=== PATIENT | male | born 1950 | race Caucasian/White ===

== ENCOUNTER 2025-03-16 09:59 | Emergency (ER) | payer OTHER ==
[~2025-03-16] VITALS: Ht 188 cm; Wt 99.8 kg
[~2025-03-16 09:59] MED LIST: ACET-2041 PO; AEC81 PO; AMLO-257 PO; ATRO5DRO OP; BRIM5DRO21 OP; DORZ10DR9 OD; FINA5TAB41 PO; LISI40TA15 PO; NASONEX NS; NEOM15CR TP; NETA2.5D3 OP; OMEP20CA12 PO; OXYC-38 PO; PRED5DRO25 OP; TAMS-55 PO; TIMO5SOL10 OP
--- NOTE | 2025-03-16 10:23 | ERN ---
General Chief Complaint: Weakness Stated Complaint: WEAKNESS Time Seen by MD: 10:02 Source: patient History of Present Illness Initial Comments Patient is a 74-year-old male coming in complaining of generalized body weakness. Patient states that this weakness has a attributed to lack of appetite. He states that he has been presenting with a his symptoms after having a surgery performed in his right knee. He states that he has been taking pain meds and feels constipated. Allergies: Coded Allergies: No Known Drug Allergies (Unverified Allergy, Unknown, 02/09/25) Home Meds Active Scripts Aspirin (ASPIRIN 81 MG ECTAB) 81 Mg Ectab, 81 MG PO BID for dvt prophylaxis for 21 Days, #42 TAB.EC 0 Refills Prov:ROHITH HANLEY MD 02/16/25 Oxycodone HCl/Acetaminophen (Percocet 5-325 mg Tablet) 5 Mg-325 Mg Tablet, 1-2 TAB PO Q8H PRN for acute post-op pain (G89.18) for 7 Days, #42 TAB 0 Refills Prov:ROHITH HANLEY MD 02/16/25 Reported Medications Dorzolamide HCl (Dorzolamide HCl) 2 % Drops, 10 ML OD BID, DROP 02/09/25 Omeprazole (Omeprazole) 20 Mg Capsule.dr, 20 MG PO PM, CAP 02/09/25 Amlodipine Besylate (Amlodipine Besylate) 5 Mg Tablet, 5 MG PO PM, TAB 02/09/25 Lisinopril (Lisinopril) 40 Mg Tablet, 40 MG PO PM, TAB 02/09/25 Tamsulosin HCl (Flomax) 0.4 Mg Cap.er.24h, 0.4 MG PO PM, CAPSULE.DR 02/09/25 Finasteride (Finasteride) 5 Mg Tablet, 5 MG PO PM, TAB 02/09/25 Prednisolone Acetate/Pf (Prednisolone Acet 1% Eye Drop) 1 % Drops.susp, 5 ML OP BID, DROP 02/09/25 Netarsudil Mesylat/Latanoprost (Rocklatan 0.02%-0.005% Eye Drp) 0.02 %-0.005 % Drops, 2.5 ML OP PM, DROP 02/09/25 Timolol Maleate (Timolol Maleate) 0.5 % Giselle.gel, 5 ML OP BID 02/09/25 Brimonidine Tartrate/Timolol (Brimonidine-Timolol 0.2%-0.5%) 0.2 %-0.5 % Drops, 5 ML OP BID, DROP 02/09/25 Neomy Sulf/Polymyx B Sulf/Pram (Neosporin Plus Pain Relief Crm) 0.35 %-10,000 Unit-10 Mg/Gram Cream..g., 1 GM TP BID 02/09/25 Atropine Sulfate (Atropine Sulfate) 0.01 % Drops, 5 ML OP BID, DROP 02/09/25 Acetaminophen/Diphenhydramine (Acetaminophen Pm Caplet) 500 Mg-25 Mg Tablet, 5 EACH PO HS, TAB 02/09/25 [Nasonex] No Conflict Check, 2 SPRAYS NS DAILY PRN for NASAL CONGESTION 02/09/25 Past Medical History Past Medical History: CVA, GERD, High Cholesterol, Hypertension Medical History Other: BPH Past Surgical History: Other Surgical History Other: RETINA SX, HERNIA SX, RT KNEE SURGERY. ROS Dictation CONSTITUTIONAL: No chills, no fever, no weakness, no diaphoresis, no malaise. HEAD/FACE: No signs of trauma. EENT: No eye pain, no blurred vision, no tearing, no double vision, no ear pain, no ear discharge, no nose pain, no nasal congestion, no throat pain, no throat swelling, no mouth pain. RESPIRATORY: No cough, no orthopnea, no SOB, no stridor, no wheezing. CARDIOVASCULAR: No chest pain, no edema, no palpitations, no syncope. GASTROINTESTINAL/ABDOMINAL: No abdominal pain, no constipation, no diarrhea, no nausea, no vomiting. GENITOURINARY: No abnormal discharge, no dysuria, no frequent urination, no hematuria. No complaints of pain in the genitals. MUSCULOSKELETAL: No back pain, no gout, no joint pain, no joint swelling, no muscle pain, no muscle stiffness, no neck pain. INTEGUMENTARY: No change in color, no change in hair/nails, no dryness, no lesion, no lumps, no rash. NEUROLOGICAL/PSYCH: No anxiety, not depressed, no emotional problem, no headache, no numbness, no pre-existing deficit, no history of seizures, no tremors, no weakness. HEMATOLOGIC/LYMPHATIC: Not anemic, no history of blood clots, no apparent bleeding, no bruising, glands not swollen. All Systems Negative, Except as Noted. Physical Exam Physical Exam Dictation VITAL SIGNS: Reviewed. GENERAL APPEARANCE: Alert, oriented x3, no acute distress, obese. HEAD AND FACE: Non-traumatic. EYES: PERRL, pink conjunctivas, eyelid no trauma, anterior chamber clear. EARS: Pinnas intact and no signs of trauma or erythema. Ear canals clear and no discharge. TMs no erythema. NOSE: No discharge, no bleeding. OROPHARYNX: Mouth normal, teeth no caries, tongue pink. Pharynx clear, no e rythema. Tonsils no exudates, no abscesses noted. Mucous membrane moist. NECK: Supple, non-tender, no thyromegaly, no masses, no JVD, no bruits. BREAST: Deferred. CHEST: No tenderness, no crepitus, no paradoxical movement, no retractions. LUNGS: Clear, well-ventilated, symmetric, no rales, no wheezing, no rhonchi, no stridor, good breath sounds bilaterally. HEART: Regular rate, regular rhythm, no murmur, no gallops. VASCULAR: No peripheral edema. ABDOMEN: Soft, positive bowel sounds, nondistended, no guarding, nontender, no rebound, no masses no hepatomegaly, no splenomegaly, no Handy's sign, no hernias. RECTAL: Deferred. GENITAL: Deferred. NEUROLOGICAL: Normal speech, gross motor function intact, gross sensory function intact. MUSCULOSKELETAL: Neck nontender, full range of motion, back nontender, full range of motion. EXTREMITIES: Nontender, full range of motion. SKIN: Color pink, dry, no turgor, no rash, no lacerations, no abrasions, no contusions. LYMPHATICS: Deferred. Results Laboratory and Microbiology Lab and Micro Result Laboratory Tests Test 03/16/25 10:28 03/16/25 10:30 White Blood Count 8.4 K/uL (4.8-10.8) Red Blood Count 4.02 MIL/uL (4.50-6.20) L Hemoglobin 12.2 g/dL (14.0-18.0) L Hematocrit 37.3 % (42-54) L Mean Corpuscular Volume 92.8 fL (79-99) Mean Corpuscular Hemoglobin 30.3 pg (27.0-33.0) Mean Corpuscular Hemoglobin Concent 32.7 g/dL (32.0-36.0) Red Cell Distribution Width 13.0 % (11.0-15.5) Platelet Count 369 K/uL (130-400) Mean Platelet Volume 9.8 fL (7.5-10.5) Immature Granulocyte % (Auto) 0.5 % (0-1) Neutrophils (%) (Auto) 74.2 % (40.0-77.0) Lymphocytes (%) (Auto) 10.8 % (21.0-51.0) L Monocytes (%) (Auto) 11.5 % (3.0-13.0) Eosinophils (%) (Auto) 2.5 % (0.0-8.0) Basophils (%) (Auto) 0.5 % (0.0-5.0) Neutrophils # (Auto) 6.2 K/uL (1.8-7.7) Lymphocytes # (Auto) 0.9 K/uL (1.0-4.8) L Monocytes # (Auto) 1.0 K/uL (0.1-1.0) Eosinophils # (Auto) 0.21 K/uL (0.00-0.70) Basophils # (Auto) 0.04 K/uL (0.00-0.20) Absolute Immature Granulocyte (auto 0.04 K/uL (0-1) Nucleated Red Blood Cells 0.0 % (0.0-0.19) Sodium Level 136 mmol/L (136-145) Potassium Level 4.7 mmol/L (3.5-5.1) Chloride Level 98 mmol/L (101-111) L Carbon Dioxide Level 27 mmol/L (21-32) Blood Urea Nitrogen 22 mg/dL (7-18) H Creatinine 1.6 mg/dL (0.5-1.3) H Glomerular Filtration Rate Calc 44 mL/min (>90) Random Glucose 113 mg/dL (70-105) H Total Calcium 9.4 mg/dL (8.5-10.1) Total Bilirubin 0.6 mg/dL (0.2-1.0) Aspartate Amino Transf (AST/SGOT) 18 U/L (10-37) Alanine Aminotransferase (ALT/SGPT) 15 U/L (12-78) Alkaline Phosphatase 96 U/L (50-136) Total Protein 8.3 g/dL (6.0-8.3) Albumin 3.8 g/dL (3.5-5.0) Urine Color YELLOW (YELLOW) Urine Appearance CLEAR (CLEAR) Urine pH 6.0 (5.0-8.0) Urine Specific [place] 1.016 (1.001-1.031) Urine Protein 10 mg/dL (NEGATIVE) H Urine Glucose (UA) NEGATIVE mg/dL (NEGATIVE) Urine Ketones 5 mg/dL (NEGATIVE) H Urine Occult Blood +- (TRACE) (NEGATIVE) H Urine Nitrate NEGATIVE (NEGATIVE) Urine Bilirubin NEGATIVE mg/dL (NEGATIVE) Urine Urobilinogen 0.2 mg/dL (0.2-1.0) Urine Leukocyte Esterase NEGATIVE [place]/uL Urine RBC 2-5 /HPF (0-1) H Urine WBC 0-1 /HPF (0-1) Urine Squamous Epithelial Cells RARE /HPF (0-2) Urine Bacteria None /HPF (None Seen) Labs Reviewed?: Yes MDM MDM: Differential diagnosis:CONSTIPATION, MEDICATION SIDE EFFECT Rationale: Tests considered and ordered secondary to shared decision making include: Previous outside records reviewed: Old ER visits. Risk of complication and/or morbidity or mortality of patient management: None Medications-Per medication reconciliation Need for hospitalization: Patient does not meet criteria for hospitalization. Need for emergency major/minor surgery: No PATIENT IS A 74-YEAR-OLD GENTLEMAN COMING IN COMPLAINING OF ABDOMINAL DISCOMFORT. PATIENT STATES THAT HE HAS BEEN TAKING PAIN MEDICATION AND BELIEVES THAT HE HAS NOT BEEN ABLE TO GO BECAUSE OF THAT. PATIENT WAS GIVEN SOME LAXATIVES AND ENEMA HE WAS ABLE TO DEFECATE A LOT. PATIENT WILL BE DISCHARGED IN STABLE CONDITION. ED Course Orders Procedure Category Date Status Time Cbc With Differential LAB 03/16/25 Complete 10:06 Comprehensive LAB 03/16/25 Complete Metabolic Panel 10:06 Urinalysis Profile LAB 03/16/25 Complete 10:06 Magnesium Citrate PHA 03/16/25 Complete (Magnesium Citrate) 11:30 0.9%Nacl 1000ml (Ns PHA 03/16/25 Complete 1000ml) 11:30 Lactulose 20 Gm/30 Ml PHA 03/16/25 Complete Udcup (Constulose 11:30 Ondansetron 4mg Inj PHA 03/16/25 Complete (Zofran 4mg Inj) 12:00 Fleet Order CPOE 03/16/25 Transmitted 13:29 Current Medications Medications (Trade) Dose Ordered Sig/Tammi Route PRN Reason Start Time Stop Time Status Last Admin Dose Admin Lactulose (Constulose 20gm/ 30ml Udcup) 20 gm ONCE ONCE PO 03/16/25 11:30 03/16/25 11:31 DC 03/16/25 11:50 Magnesium Citrate (Magnesium Citrate) 296 ml ONCE ONCE PO 03/16/25 11:30 03/16/25 11:31 DC 03/16/25 11:50 Ondansetron HCl (zoFRAN 4MG INJ) 4 mg ONCE ONCE IVP 03/16/25 12:00 03/16/25 12:01 DC 03/16/25 12:38 Sodium Chloride 1,000 ml @ 0 mls/hr ONCE ONCE IV 03/16/25 11:30 03/16/25 11:31 DC 03/16/25 11:35 Vital Signs Date Time Temp Pulse Resp B/P (MAP) Pulse Ox O2 Delivery O2 Flow Rate FiO2 03/16/25 10:47 98.4 96 19 129/80 98 Room Air* 0 21 03/16/25 10:00 97.5 114 20 114/87 97 Room Air DX & DISP Disposition: Discharge Departure Impression: Primary Impression: Constipation Additional Impression: Chronic renal failure Condition: Stable Scripts Lactulose (Lactulose) 10 Gram/15 Ml Solution 30 ML PO BID for constipation, #500 ML 0 Refills Prov: TAHIR VUONG MD 03/16/25 Additional Instructions: FOLLOW-UP WITH PRIMARY CARE PROVIDER IN 1 TO 2 DAYS. TAKE MEDICATIONS DIRECTED HERE IN THE EMERGENCY ROOM. OKAY TO CONTINUE HOME MEDICATIONS UNLESS OTHERWISE DISCUSSED DURING YOUR VISIT IN THE EMERGENCY ROOM TODAY. RETURN TO YOUR NEAREST EMERGENCY ROOM IF SYMPTOMS WORSEN OR IF THERE IS NO IMPROVEMENT. CALL 911 IF YOU NEED IMMEDIATE ASSISTANCE. TAKE TYLENOL [id number] NEEDED AND IF NO CONTRAINDICATIONS ARE PRESENT. INCREASE ORAL HYDRATION. A WOUND CULTURE OR URINE CULTURE WAS ORDERED HERE IN THE EMERGENCY ROOM DEPARTMENT PLEASE FOLLOW-UP WITH PRIMARY CARE PROVIDER AND ADVISE THEM TO GET REPORTS FROM OUR FACILITY. IF YOU HAD ANY ESTEBAN WRAP/SPLINTS THAT WERE APPLIED HERE, PLEASE DO NOT REMOVE THEM UNTIL YOU SEE YOUR PRIMARY CARE OR SPECIALTY. REFERRALS: Referrals: ANGELA DUENAS (PCP) Time of Disposition: 14:17 TAHIR VUONG MD Mar 16, 2025 10:23
[2025-03-16 10:41] LABS: APPEARANCE,URINE CLEAR (CLEAR); GLUCOSE, URINE (UA) NEGATIVE (NEGATIVE); LEUKOCYTE ESTERASE ,URINE NEGATIVE Leu/uL (NEGATIVE); NITRATE,URINE NEGATIVE (NEGATIVE); OCCULT BLOOD,URINE +- (TRACE) (NEGATIVE)
[2025-03-16 10:44] LABS: ADD UA MICROSCOPIC YES
[2025-03-16 10:52] LABS: SQUAMOUS EPITHELIAL CELL,UR RARE /HPF (0-2)
[2025-03-16 10:55] LABS: CREATININE 1.6 mg/dL (0.5-1.3); GLOMERULAR FILTR. RATE CALC 44.0 mL/min (>90); GLUCOSE,RANDOM 113.0 mg/dL (70-105); SODIUM SERUM 136.0 mmol/L (136-145); UREA NITROGEN, BLOOD 22.0 mg/dL (7-18)
[2025-03-16 11:00] LABS: ASPARTATE AMINOTRANSFERASE 18.0 U/L (10-37); TOTAL PROTEIN, SERUM 8.3 g/dL (6.0-8.3)
[2025-03-16 11:04] LABS: IMMATURE GRANULOCYTE ABSOLUTE 0.04 K/uL (0-1); NUCLEATED RED BLOOD CELLS 0.0 % (0.0-0.19); PLATELET COUNT (AUTO) 369 K/uL (130-400); RED BLOOD CELL COUNT(AUTO) 4.02 MIL/uL (4.50-6.20); RED CELL DISTRIBUTION WIDTH 13.0 % (11.0-15.5); WHITE BLOOD COUNT (AUTO) 8.4 K/uL (4.8-10.8)
[2025-03-16] MEDS: 0.9%NACL 1000ML 1,000 ML IV ONE (11:35)
[2025-03-16] MEDS: MAGNESIUM CITRATE 296 ML SOLUTION PO ONE (11:50)
[2025-03-16] MEDS: LACTULOSE 20 GM/30 ML UDCUP PO ONE (11:50)
[2025-03-16] MEDS ORDERED: LACT-441 PO (14:18)
[2025-03-16 14:31] VITALS: BP 101/68; PULSE 115; RESP 15; TEMP 98.2; O2SAT 96
--- NOTE | 2025-03-16 14:43 | NUR ---
dc patient was dc'd by dr chou, i dc'd patients iv with cath still intact and applied 2x2 gauze with coban i explained to patient to follow up with pcp, provided info based on diagnosis, prescriptions and answered any follow up questions patient was taken out of ed via wheelchair, no complications
== END 2025-03-16 14:42 | disposition home or self-care (01) ==
LOC: EDH 09:59
DX: K59.00 Constipation, unspecified (principal); I12.9 Hypertensive chronic kidney disease with stage 1 through stage 4 chronic kidney disease, or unspecified chronic kidney disease; N18.9 Chronic kidney disease, unspecified; E78.00 Pure hypercholesterolemia, unspecified; K21.9 Gastro-esophageal reflux disease without esophagitis; Z79.82 Long term (current) use of aspirin; Z86.73 Personal history of transient ischemic attack (TIA), and cerebral infarction without residual deficits
CPT/HCPCS: 99284; 96374; 96361; 80053; 85025; 81001; 36415; J2405